=== PATIENT | male | born 1945 | race Caucasian/White ===

== ENCOUNTER → 2017-05-20 | Outpatient (CLI) | payer OTHER ==
--- NOTE | 2017-05-20 10:55 | KCIC ---
EXAM: Lumbar spine MRI without contrast. HISTORY: Lower back pain. TECHNIQUE: Multiplanar, multisequence magnetic resonance imaging of the lumbar spine was performed without contrast. COMPARISON: None. FINDINGS: There is mild lumbar levoscoliosis. There is grade 1 anterolisthesis of L5 on S1, measuring 8 mm. There are pars defects at this level. There is slight retrolisthesis of T11 on T12, T12 on L1, L1 on L2 and L4 on L5. There is degenerative endplate remodeling and disc desiccation at all levels. There are multiple endplate Schmorl's nodes. There is mild decreased anterior vertebral body height at T11 and T12, likely degenerative in etiology. No acute or subacute fracture is seen. The conus terminates at T12-L1. There is no suspicious osseous lesion. At T11-T12, there is a disc bulge and endplate remodeling. There is mild right foraminal stenosis. At T12-L1, there is a disc bulge and endplate osteophytosis. There is mild bilateral foraminal stenosis. At L1-L2, there is a disc bulge and endplate remodeling. There is no stenosis. At L2-L3, there is a right paracentral to lateral recess disc protrusion superimposed on a disc bulge and endplate remodeling. There is effacement of the right lateral recess and deviation of the traversing right nerve roots. At L3-L4, there is a disc bulge and endplate remodeling. There is no stenosis. At L4-L5, there is a broad-based posterior central disc protrusion superimposed on a disc bulge and endplate osteophytosis. There is minimal left facet arthropathy. There is mild bilateral foraminal stenosis. At L5-S1, there is a disc bulge with left foraminal annular tear and endplate osteophytosis. There is mild facet arthropathy. There is grade 1 anterolisthesis with pars defects. There is mild bilateral foraminal stenosis with abutment of the exiting L5 nerve roots. IMPRESSION: 1. Multilevel degenerative changes of the lumbar spine, described in detail above. This results in mild right foraminal stenosis at T11-T12, mild bilateral foraminal stenosis at T12-L1, effacement of the right lateral recess and deviation of the traversing right nerve root at L2-L3, mild bilateral foraminal stenosis at L4-L5, and mild bilateral foraminal stenosis with abutment of the exiting L5 nerve root at L5-S1. 2. Grade 1 anterolisthesis of L5 on S1, slight retrolisthesis at multiple levels and mild scoliosis. Electronically signed by: Chrissy Lauren MD (05/20/2017 10:52 AM) [id number]
== END | disposition home or self-care (01) ==
LOC: KCIC MRI 09:43
PROVIDERS: ATTEND Family Medicine
DX: M48.061 Spinal stenosis, lumbar region without neurogenic claudication (principal); M51.26 Other intervertebral disc displacement, lumbar region
CPT/HCPCS: 72148